=== PATIENT | male | born 1930 | race Caucasian/White ===

== ENCOUNTER 2020-02-10 17:13 | Inpatient (IN) | payer MEDICARE, MEDICAID ==
[~2020-02-10] VITALS: Ht 165.1 cm; Wt 77.1 kg
[2020-02-10] MEDS ORDERED: IV NS 0.9% 1,000 ML BAG IV ONE (17:30)
[2020-02-10] MEDS ORDERED: ONDANSETRON HCL/PF 4 MG/2 ML VIAL IVP ONE (17:30)
[2020-02-10] MEDS ORDERED: FAMOTIDINE/PF INJ 20 MG/2 ML VIAL IV ONE ×2 (17:30→17:36)
[2020-02-10] MEDS ORDERED: MORPHINE SULFATE INJ 2 MG/ML DISP.SYRIN IV ONE (17:30)
[2020-02-10] MEDS ORDERED: ONDANSETRON HCL/PF 4 MG/2 ML VIAL ONE (17:36)
[2020-02-10] MEDS ORDERED: MORPHINE SULFATE INJ 2 MG/ML DISP.SYRIN ONE (17:36)
[2020-02-10 17:42] LABS: APPEARANCE,URINE Clear (CLEAR); BILIRUBIN,URINE Negative (NEGATIVE); BLOOD, URINE Negative Ery/uL (NEGATIVE); COLOR,URINE Yellow (YELLOW); KETONES,URINE Negative (NEGATIVE); LEUKOCYTE ESTERASE ,URINE Negative (NEGATIVE); NITRITE, URINE Negative (NEGATIVE); PH,URINE 6.5 (5.0-8.0); PROTEIN,URINE 30 mg/dl (NEGATIVE); UGLUCOSE Negative (NEGATIVE)
[2020-02-10 17:47] LABS: BASOPHILS % (AUTO) 0.1 % (0.0-2.0); EOSINOPHILS % (AUTO) 0.1 % (0.0-6.0); HEMATOCRIT 41 % (39-51); HEMOGLOBIN 13.4 g/dL (13.5-17.5); LYMPHOCYTES # (AUTO) 1.1 /CMM (0.8-4.8); LYMPHOCYTES % (AUTO) 7.5 % (20.0-44.0); MEAN CORPUSCULAR HGB CONC 33 g/dl (31.0-36.0); MEAN CORPUSCULAR VOLUME 98 fL (80-96); MONOCYTES # (AUTO) 1.3 /CMM (0.1-1.30); MONOCYTES % (AUTO) 8.5 % (2.0-12.0); NEUTROPHILS # (AUTO) 12.8 /CMM (1.8-8.9); NEUTROPHILS % (AUTO) 83.8 % (43.0-81.0); PLATELET COUNT (AUTO) 162 /CMM (150-450); RED BLOOD CELL COUNT(AUTO) 4.15 MIL/uL (4.5-6.0); WHITE BLOOD COUNT (AUTO) 15.2 K/uL (4.3-11.0)
[2020-02-10 17:52] LABS: BACTERIA,URINE None seen /HPF (None Seen); RBC,URINE 0-2 /HPF (0-2); SQUAMOUS EPITHELIAL CELL,UR Few /HPF (None Seen); WBC,URINE 0-2 /HPF (0-3)
--- NOTE | 2020-02-10 17:55 | NUR ---
patient came in to the er c/o RUQ abdominal pain. On room air, breathing evenly and unlabored. connected to the monitor and pulse ox. kept comfortable, will continue to monitor accordingly.
[2020-02-10 17:56] LABS: CALCIUM, SERUM 8.6 mg/dL (8.5-10.1); CARBON DIOXIDE 27 mmol/L (21-32); CHLORIDE 100 mmol/L (98-107); CREATININE 1.1 mg/dL (0.6-1.3); GLUCOSE 153 mg/dL (74-106); POTASSIUM 4.1 mmol/L (3.5-5.1); SODIUM SERUM 134 mmol/L (136-145); UREA NITROGEN, BLOOD 18 mg/dL (7-18)
[2020-02-10 18:02] LABS: ALANINE AMINOTRANSFERASE 27 U/L (12-78); ALBUMIN 3.2 g/dL (3.4-5.0); ALKALINE PHOSPHATASE 67 U/L (46-116); ASPARTATE AMINOTRANSFERASE 27 U/L (15-37); BILIRUBIN,DIRECT 0.2 mg/dL (0.0-0.2); LIPASE 84 U/L (73-393); TOTAL PROTEIN, SERUM 7.2 g/dL (6.4-8.2)
--- NOTE | 2020-02-10 18:04 | NUR ---
patient came back from ct
--- NOTE | 2020-02-10 18:45 | NUR ---
CALLED DR. HOWE, NO ANSWER LEFT MESSAGE.
[2020-02-10] MEDS ORDERED: PIPERACILLIN /TAZOBACTAM 3.375 G in IV D5W 50 ML IV ONE (19:00)
--- NOTE | 2020-02-10 19:00 | NUR ---
SECOND ATTEMPT FOR DR. HOWE.
--- NOTE | 2020-02-10 19:13 | NUR ---
PAGED [facility].
--- NOTE | 2020-02-10 19:23 | NUR ---
DR. DEVINE SPEAKING WITH HOSPITALIST ROHITH LARA, SCHEDULER MAINTENANCE
--- NOTE | 2020-02-10 19:23 | NUR ---
PAGED DR. HOWE THIRD ATTEMPT.
--- NOTE | 2020-02-10 19:24 | NUR ---
COVID SWAB COLLECTED, CALLED LAB FOR STARTER CUP POWDER MIXER
--- NOTE | 2020-02-10 19:36 | NUR ---
PT IN BED AWAKE AND ALERT. ASKED PT ABOUT HIS HOME MEDS. PER HIM, HE IS TAKING A MEDICATION FOR HIS THYROID IN THE MORNING BUT HE DOES NOT RECALL THE NAME OR DOSE OF THE MED
--- NOTE | 2020-02-10 19:40 | NUR ---
BUTCH DUNBAR TALKING TO DR. HOWE REGARDING PT.
--- NOTE | 2020-02-10 20:03 | NUR ---
REC'D NEG COVID RESULTS FROM LAB. AWARE. CALLED NURSING SUP FOR BED
--- NOTE | 2020-02-10 20:04 | NUR ---
ROHITH LARA, PULMONARY DISEASE SPECIALIST AT BEDSIDE FOR EVALUATION
--- NOTE | 2020-02-10 20:05 | NUR ---
BED ASSIGNMENT 310-2
--- NOTE | 2020-02-10 20:13 | NUR ---
report give to Ivonne
--- NOTE | 2020-02-10 20:25 | NUR ---
dr Ari Franco at bed side
[2020-02-10] MEDS ORDERED: MAG HYDROX/AL HYDROX/SIMETH 30 ML UDC PO PRN (20:30)
[2020-02-10] MEDS ORDERED: ZOLPIDEM TARTRATE 5 MG TABLET PO PRN (20:30)
[2020-02-10] MEDS ORDERED: MORPHINE SULFATE INJ 2 MG/ML DISP.SYRIN IV PRN (20:30)
[2020-02-10] MEDS ORDERED: MAGNESIUM HYDROXIDE 30 ML UDC PO PRN (20:30)
[2020-02-10] MEDS ORDERED: Z GUARD REMEDY 2 OZ OINT TP PRN (20:30)
[2020-02-10] MEDS ORDERED: ACETAMINOPHEN 325 MG TABLET PO PRN (20:30)
[2020-02-10] MEDS ORDERED: ONDANSETRON HCL/PF 4 MG/2 ML VIAL IVP PRN (20:30)
--- NOTE | 2020-02-10 20:38 | NUR ---
MS ALBARRAN OPENING NOTES RECEIVED PATIENT FROM [facility] WITH STRETCHER, AWAKE, CONSCIOUS, COOPERATIVE, BREATHING AT ROOM AIR, NO SIGNS OF RESPIRATORY DISTRESS, LEFT HAND IV ACCESS #22G INTACT, ABLE TO AMBULATE BY HIMSELF, NO COMPLAINTS OF PAIN, SIDE RAILS UP. Addendum: 02/10/20 at 2358 by CLINT PA RN VITAL SIGNS UPON ARRIVAL AT THE UNIT. BP- 142/94, HR- 83, RR- 18, TEMP- 98, O2 SAT 95%.
--- NOTE | 2020-02-10 20:41 | NUR ---
PT TRANSFERED PER ACLS PROTOCOL
[2020-02-10] MEDS: IV NS 0.9% 1,000 ML IV PRN (21:09)
[2020-02-11] MEDS ORDERED: PIPERACILLIN /TAZOBACTAM 3.375 G in IV D5W 50 ML IV SCH ×2
[2020-02-11] MEDS ORDERED: PIPERACILLIN /TAZOBACTAM 3.375 G VIAL IV ONE (00:18)
[2020-02-11] MEDS: PIPERACILLIN /TAZOBACTAM 3.375 G in IV D5W 100 ML IV SCH ×3 (00:23→17:11)
--- NOTE | 2020-02-11 06:49 | NUR ---
MS RN CLOSING NOTES ENDORSED PATIENT IN BED, AWAKE, CONSCIOUS, COOPERATIVE, BREATHING AT ROOM AIR, NO SIGNS OF RESPIRATORY DISTRESS, LEFT HAND IV ACCESS #22G INTACT NS @ 90ML/HR INFUSING WELL, ABLE TO AMBULATE BY HIMSELF, NO COMPLAINTS OF PAIN, DUE MED GIVEN SIDE RAILS UP FOR SAFETY.
[2020-02-11 08:00] VITALS: BP 117/63
[2020-02-11] MEDS: PANTOPRAZOLE 40 MG VIAL IV SCH (08:11)
[2020-02-11 09:33] LABS: BASOPHILS % (AUTO) 0.2 % (0.0-2.0); EOSINOPHILS % (AUTO) 0.4 % (0.0-6.0); HEMATOCRIT 38 % (39-51); HEMOGLOBIN 12.7 g/dL (13.5-17.5); LYMPHOCYTES # (AUTO) 1.4 /CMM (0.8-4.8); LYMPHOCYTES % (AUTO) 11.5 % (20.0-44.0); MEAN CORPUSCULAR HGB CONC 33 g/dl (31.0-36.0); MEAN CORPUSCULAR VOLUME 97 fL (80-96); MONOCYTES # (AUTO) 0.9 /CMM (0.1-1.30); MONOCYTES % (AUTO) 7.8 % (2.0-12.0); NEUTROPHILS # (AUTO) 9.8 /CMM (1.8-8.9); NEUTROPHILS % (AUTO) 80.1 % (43.0-81.0); PLATELET COUNT (AUTO) 149 /CMM (150-450); RED BLOOD CELL COUNT(AUTO) 3.91 MIL/uL (4.5-6.0); WHITE BLOOD COUNT (AUTO) 12.2 K/uL (4.3-11.0)
[2020-02-11 09:43] LABS: ALBUMIN 2.7 g/dL (3.4-5.0); BILIRUBIN,DIRECT 0.3 mg/dL (0.0-0.2); CALCIUM, SERUM 8.1 mg/dL (8.5-10.1); CREATININE 0.9 mg/dL (0.6-1.3); MAGNESIUM 2.3 mg/dL (1.8-2.4); PHOSPHORUS 2.1 mg/dL (2.5-4.9); POTASSIUM 3.7 mmol/L (3.5-5.1); TOTAL PROTEIN, SERUM 6.4 g/dL (6.4-8.2)
[2020-02-11] MEDS ORDERED: LEVO75TA56 PO (09:45)
[2020-02-11] MEDS ORDERED: IOHEXOL-300 100 ML VIAL IV ONE (09:47)
[2020-02-11] MEDS ORDERED: CT SWABBABLE VALVE TRANS SET 1 EA INFUS.SET MC ONE (09:47)
[2020-02-11] MEDS ORDERED: IV NS 0.9% 250 ML IV ONE (09:47)
[2020-02-11] MEDS: ENOXAPARIN SODIUM 40 MG/0.4 ML DISP.SYRIN SQ SCH (12:32)
[2020-02-11] MEDS ORDERED: NEUTRA PHOS 1 POWD.PACKET PO ONE (14:00)
[2020-02-11 16:00] VITALS: BP 120/62
--- NOTE | 2020-02-11 18:27 | NUR ---
RN END OF SHIFT SUMMARY PT IS A/OX4, AFEBRILE. NON-MONITORED, VSS. TOLERATING RA. RESPIRATIONS ARE EVEN AND UNLABORED, NOT IN ANY ACUTE DISTRESS NOTED. DENIES ANY CHEST PAIN, SOB, N/V. ABDOMEN IS SOFT AND NONDISTENDED, BOWEL SOUNDS ARE PRESENT IN ALL 4 QUADRANTS UPON AUSCULTATION. DENIES ANY BLADDER DISCOMFORT. SKIN CDI. ALL NEEDS MET AND RENDERED. SAFETY MEASURES ARE IN PLACE. CALL LIGHT IS LEFT WITHIN REACH. WILL MONITOR AND CONTINUE POC.
[2020-02-11 20:00] VITALS: BP 114/69
--- NOTE | 2020-02-11 20:00 | NUR ---
MS RN OPENING NOTE: Received patient in bed sleeping but easily arousable. Shows no signs of pain or discomfort. Patient is in room air; breathing is unlabored and equal. No SOB or distress noted. Noted IV access on left hand 22g. Flushes well, patent, no redness, or infiltration. Safety precaution is in place; bed is in the lowest level, brakes are locked, side rails x2 are up, and call light is within reach. Will continue plan of care.
[2020-02-12] MEDS: PIPERACILLIN /TAZOBACTAM 3.375 G in IV D5W 100 ML IV SCH ×3 (00:39→17:33)
[2020-02-12] MEDS: IV NS 0.9% 1,000 ML IV PRN (00:55)
--- NOTE | 2020-02-12 06:30 | NUR ---
MS RN CLOSING NOTE: Patient in bed resting comfortably. Patient is in room air; breathing is unlabored and equal. No SOB or distress noted. Safety precaution is in place; bed is in the lowest level, brakes are locked, side rails x2 are up, and call light is within reach. Will endorse to next shift.
[2020-02-12 07:06] LABS: BASOPHILS % (AUTO) 0.1 % (0.0-2.0); EOSINOPHILS % (AUTO) 0.8 % (0.0-6.0); HEMATOCRIT 40 % (39-51); LYMPHOCYTES # (AUTO) 1.4 /CMM (0.8-4.8); LYMPHOCYTES % (AUTO) 11.4 % (20.0-44.0); MEAN CORPUSCULAR HGB CONC 32 g/dl (31.0-36.0); MEAN CORPUSCULAR VOLUME 99 fL (80-96); MONOCYTES # (AUTO) 1.1 /CMM (0.1-1.30); MONOCYTES % (AUTO) 8.4 % (2.0-12.0); NEUTROPHILS # (AUTO) 9.9 /CMM (1.8-8.9); NEUTROPHILS % (AUTO) 79.3 % (43.0-81.0); PLATELET COUNT (AUTO) 169 /CMM (150-450); RED BLOOD CELL COUNT(AUTO) 4.07 MIL/uL (4.5-6.0); WHITE BLOOD COUNT (AUTO) 12.5 K/uL (4.3-11.0)
[2020-02-12 07:16] LABS: CALCIUM, SERUM 8.1 mg/dL (8.5-10.1); CREATININE 0.9 mg/dL (0.6-1.3); PHOSPHORUS 2.6 mg/dL (2.5-4.9); POTASSIUM 3.7 mmol/L (3.5-5.1)
--- NOTE | 2020-02-12 07:30 | NUR ---
MS/RN OPENING NOTES Patient resting in bed, A&O x 4. No complaints of pain/discomfort noted at this time. Breathing even and non-labored on room air, no SOB noted. No cardiac distress noted. IV access noted on L hand #22, patent and intact, running NS @ 90mls/hr. Patient is ambulatory, instructed to use call light when in need of assistance getting up. Sensation from all peripheral extremities intact. Fall precautions maintained. Will continue to monitor patient for any changes of condition.
[2020-02-12] MEDS: HYDROCODONE/APAP 5/325MG 1 EACH TABLET PO PRN ×2 (07:53→17:34)
--- NOTE | 2020-02-12 07:53 | NUR ---
MS RN NOTE: Patient complains of abdominal pain. Patient rates his pain 7 on a 0-10 scale and describes it as aching. Administered PRN [place] per order. Will endorse to morning nurse.
[2020-02-12] MEDS: PANTOPRAZOLE 40 MG VIAL IV SCH (08:09)
[2020-02-12] MEDS: ENOXAPARIN SODIUM 40 MG/0.4 ML DISP.SYRIN SQ SCH ×2 (12:11→12:19)
--- NOTE | 2020-02-12 12:19 | NUR ---
MS/RN NOTE HELD LOVENOX, POSSIBLE SURGERY SOON, PER DR THOMPSON.
--- NOTE | 2020-02-12 19:00 | NUR ---
MS/RN CLOSING NOTES Patient resting in bed, A&O x 4. No complaints of pain/discomfort noted at this time, gave norco last 1734. Breathing even and non-labored on room air. No respiratory or cardiac distress noted. IV access noted on L hand #22, patent and intact, running NS @ 90mls/hr. No s/s of infiltration, bleeding, infection noted on site. Instructed to use call light when in need of assistance getting up. Sensation from all peripheral extremities intact. Fall precautions maintained. Obtained procedure, anesthesia, and blood transfusion consent, which are placed on the chart. NPO after midnight, will endorse to maintenance supervisor 2nd shift nurse.
--- NOTE | 2020-02-12 19:30 | NUR ---
MS RN NOTES RECEIVED ON BED A/O X4,SPEAK SENEGALESE,BREATHING REGULAR,NOT IN ANY FORM OF DISTRESS,ABDOMINAL PAIN TOLERABLE AT THE MOMENT,WAS JUST MEDICATED WITH NORCO 5/325MG AROUND 1800.INSTRUCTED NPO POST MIDNIGHT EXCEPT MEDS FOR LAPAROSCOPIC CHOLECYSTECTOMY TOMORROW BY NICOLE AVERY.CALL LIGHT IN REACH,NEEDS ANTICIPATED.
[2020-02-12 20:00] VITALS: BP 118/58
[2020-02-12 20:16] VITALS: BP 118/58
--- NOTE | 2020-02-13 | NUR ---
MS RN NOTES NPO EXCEPT MEDS POST MIDNIGHT FOR LAPAROSCOPIC CHOLECYSTECTOMY WITH DR HOWE
[2020-02-13] MEDS: PIPERACILLIN /TAZOBACTAM 3.375 G in IV D5W 100 ML IV SCH ×3 (00:15→18:35)
--- NOTE | 2020-02-13 06:41 | NUR ---
PARALEGAL SUPERVISOR NOTES ON BED A/O X4,SLEPT WELL,ABDOMINAL PAIN TOLERABLE.NPO EXCEPT MEDS FOR PROCEDURE AT 1200 NOON.IN NO ACUTE DISTRESS.WILL ENDORSE TO DAY NURSE FOR ARISTEO.
[2020-02-13 07:32] LABS: CALCIUM, SERUM 7.2 mg/dL (8.5-10.1); CREATININE 0.9 mg/dL (0.6-1.3); POTASSIUM 3.2 mmol/L (3.5-5.1)
--- NOTE | 2020-02-13 07:42 | NUR ---
MS RN NOTES PATIENT IN BED RESTING NO SOB OR ACUTE DISTRESS NOTED. PATIENT WAITING FOR SURGERY. NPO EXCEPT MEDS. BED IN LOW LOCKED POSITION. WILL CONTINUE TO MONITOR.
[2020-02-13 08:00] VITALS: BP 115/59
[2020-02-13] MEDS: PANTOPRAZOLE 40 MG VIAL IV SCH (08:06)
[2020-02-13] MEDS: POTASSIUM CL. PREMIX PERIPHER. 50 ML IV SCH ×2 (08:06→16:54)
[2020-02-13] MEDS: IV NS 0.9% 1,000 ML IV PRN ×2 (08:13→22:27)
[2020-02-13 08:17] LABS: BASOPHILS % (AUTO) 0.2 % (0.0-2.0); EOSINOPHILS % (AUTO) 2.9 % (0.0-6.0); HEMATOCRIT 36 % (39-51); HEMOGLOBIN 12.2 g/dL (13.5-17.5); LYMPHOCYTES # (AUTO) 1.1 /CMM (0.8-4.8); LYMPHOCYTES % (AUTO) 13.8 % (20.0-44.0); MEAN CORPUSCULAR HGB CONC 34 g/dl (31.0-36.0); MEAN CORPUSCULAR VOLUME 98 fL (80-96); MONOCYTES # (AUTO) 0.8 /CMM (0.1-1.30); MONOCYTES % (AUTO) 9.8 % (2.0-12.0); NEUTROPHILS # (AUTO) 5.7 /CMM (1.8-8.9); NEUTROPHILS % (AUTO) 73.3 % (43.0-81.0); PLATELET COUNT (AUTO) 179 /CMM (150-450); RED BLOOD CELL COUNT(AUTO) 3.71 MIL/uL (4.5-6.0); WHITE BLOOD COUNT (AUTO) 7.8 K/uL (4.3-11.0)
[2020-02-13] MEDS ORDERED: TETRACAINE/BENZOCAINE/BUTAMBEN 56 GM SPRAY TP ONE (10:06)
[2020-02-13 16:05] VITALS: BP 113/66
--- NOTE | 2020-02-13 18:36 | NUR ---
MS RN NOTES PATIENT IN BED RESTING NO SOB OR ACUTE DISTRESS NOTED. PATIENT ALERT, ORIENTED X 3. ALL DUE MEDICATIONS ADMINISTERED. ALL NEEDS MET. NO ACUTE CHANGES NOTED DURING SHIFT. WILL ENDORSE CARE TO PM SHIFT.
[2020-02-13 20:00] VITALS: BP 107/55
--- NOTE | 2020-02-13 20:10 | NUR ---
airborne operations: received report from ozzy hassan at 1915. met with pt in the room. pt is a/o x3 on ra respirations evena nd unlabored, denies any pain at this time, pt stated his only concern is to have something to eat tonight as he's been npo throughout the day. scheduled surgery today but got cancelled. per report, no plans of surgery for tomorrow, it will be outpatient surgery. iv access patent and flushing well, infusing with ns at 90ml/hr. urinal within reach. scd applied. discussed plan of care to pt, pt agree and understand. safety precautions for fall initiated, call light in reach, will continue to monitor.
--- NOTE | 2020-02-13 20:30 | NUR ---
rn notes: urinal emptied twice. urinal within reach. pt provided with jello juice and egg sandwich.
--- NOTE | 2020-02-13 21:30 | NUR ---
rn notes: pt sleeping, snoring, appears comfortable,respiration even and unlabored.
--- NOTE | 2020-02-13 22:28 | NUR ---
prn tylenol: pt requested tylenol for low grade temp 99.3. prn tylenol 650 mg tab po administered to pt at this time.
--- NOTE | 2020-02-13 22:39 | NUR ---
rn notes: went to check on pt, pt been complaining that he's disappointed because there is no night light, informed pt rn can turn the light on it just so happened that the overhead light string was really short. showed to pt, unfortunately the bottom part for light isnt working. pt refused to keep lights on. also he complained that the sandwhich is cold, informed it was taken from the fridge and that kitchen is closed for the night so we could only provide snacks for pt such as sandwich, jello juice pudding, milk and crackers. offered to warm pt's sandwich. pt refused. broomcorn scraper notified of pt's complaint.
--- NOTE | 2020-02-14 00:30 | NUR ---
RN NOTES: SEEN PT ASLEEP, APPEARS CALM AND COMFORTABLE, URINAL AND CALL LIGHT WITHIN REACH.
[2020-02-14] MEDS: PIPERACILLIN /TAZOBACTAM 3.375 G in IV D5W 100 ML IV SCH ×3 (00:56→16:44)
--- NOTE | 2020-02-14 01:30 | NUR ---
rn notes: per rd recommendation, the [facility] diet consistency soft. informed hospitalist joni rincon director translational as pt able to tolerate po intake full liquid diet last night, and made aware of asbestos brake lining finisher recommendation. per okay to be on the [facility] soft diet for breakfast.
--- NOTE | 2020-02-14 02:00 | NUR ---
RN NOTES: PT SLEEPING, APPEARS CALM AND COMFORTABLE, CALL LIGHT AND URINAL WITHIN REACH.
--- NOTE | 2020-02-14 06:52 | NUR ---
end of shift report: pt remains a/o x4, able to sleep for approximately 6hrs. on ra, denies any pain or discomfort throughout the shift. tolerated po intake well. iv access remains patent and flushing well, infusing with ns at 90ml/hr. no s/s of iv infiltration noted. urinal within reach. PLAN OF CARE: INPT vs OUTPT cholecystectomy. Cont IV ATB. vs remains stable, needs attended. safety precautions for fall remains engaged, call light in reach, will endorse to day rn for continuity of care.
--- NOTE | 2020-02-14 07:30 | NUR ---
RN OPENING NOTES RECEIVED PT IN BED. AWAKE ALERT AND ORIENTED X4. NO CARDIAC OR RESPIRATORY DISTRESS NOTED. NO SOB NOTED. SATURATING WELL ON ROOM AIR. BREATHING EVEN AND UNLABORED. PER REPORT FROM GRAIN INSPECTOR NURSE PTS CHOLECYSTECTOMY PROCEDURE WAS CANCELLED YESTERDAY. WILL F/U WITH MD REGARDING PLAN FOR RE-SCHEDULING. IV ACCESS NOTED ON L HAND G22. INTACT AND PATENT AND FLUSHING WELL. WITH NS RUNNING ATR 90ML/HR. TOLERATING IV FLUIDS WELL. SAFETY PRECAUTIONS IN PLACE. BED LOCKED AND IN LOW POSITION. SIDE RAILS UP X2. BED ALARM ON. CALL LIGHT WITHIN REACH. WILL CONT TO MONITOR.
[2020-02-14 08:00] VITALS: BP 109/67
[2020-02-14] MEDS: LEVOTHYROXINE SODIUM 75 MCG TABLET PO SCH (08:19)
[2020-02-14 08:29] LABS: BASOPHILS % (AUTO) 0.2 % (0.0-2.0); EOSINOPHILS % (AUTO) 2.4 % (0.0-6.0); HEMATOCRIT 40 % (39-51); HEMOGLOBIN 13.1 g/dL (13.5-17.5); LYMPHOCYTES # (AUTO) 1.1 /CMM (0.8-4.8); LYMPHOCYTES % (AUTO) 9.5 % (20.0-44.0); MEAN CORPUSCULAR HGB CONC 33 g/dl (31.0-36.0); MEAN CORPUSCULAR VOLUME 98 fL (80-96); MONOCYTES # (AUTO) 1.3 /CMM (0.1-1.30); MONOCYTES % (AUTO) 11.2 % (2.0-12.0); NEUTROPHILS # (AUTO) 8.6 /CMM (1.8-8.9); NEUTROPHILS % (AUTO) 76.7 % (43.0-81.0); PLATELET COUNT (AUTO) 199 /CMM (150-450); RED BLOOD CELL COUNT(AUTO) 4.05 MIL/uL (4.5-6.0); WHITE BLOOD COUNT (AUTO) 11.2 K/uL (4.3-11.0)
[2020-02-14 08:38] LABS: CALCIUM, SERUM 7.9 mg/dL (8.5-10.1); CREATININE 0.9 mg/dL (0.6-1.3); POTASSIUM 3.9 mmol/L (3.5-5.1)
[2020-02-14] MEDS: PANTOPRAZOLE 40 MG TABLET.DR PO SCH (08:53)
[2020-02-14] MEDS: POTASSIUM CHLORIDE 20 MEQ TAB.PRT.SR PO SCH ×3 (09:02→11:45)
--- NOTE | 2020-02-14 11:00 | NUR ---
K REPLACEMENT K+ REPLACEMENT DONE TODAY. PTY WAS GIVEN 60MEQ TOTAL OF POTASSIUM.
[2020-02-14] MEDS: HYDROCODONE/APAP 5/325MG 1 EACH TABLET PO PRN (12:38)
--- NOTE | 2020-02-14 17:00 | NUR ---
SURGERY CONSULT PT WAS SEEN BY KARTHIK ROLLER HAND, PER KARTHIK MOST LIKELY SURGERY FOR CHOLECYSTECTOMY WILL BE ON SUNDAY. PT IS AWARE. KARTHIK SPOKE TO PT REGARDING PLAN OF CARE
--- NOTE | 2020-02-14 18:15 | NUR ---
RN CLOSING NOTES PT IN BED. AWAKE ALERT AND ORIENTED X4. NO CARDIAC OR RESPIRATORY DISTRESS NOTED. NO SOB NOTED. SATURATING WELL ON ROOM AIR. BREATHING EVEN AND UNLABORED. PER REPORT FROM VICE PRESIDENT TAX NURSE PTS CHOLECYSTECTOMY PROCEDURE WAS CANCELLED YESTERDAY. WILL F/U WITH MD REGARDING PLAN FOR RE-SCHEDULING. IV ACCESS NOTED ON L HAND G22 AND R AC G18. INTACT AND PATENT AND FLUSHING WELL. IV FLUIDS DISCONTINUED TODAY BY MD. PT MADE AWARE REGARDING RE-SCHEDULED CHOLECYSTECTOMY FOR SUNDAY. SAFETY PRECAUTIONS IN PLACE. BED LOCKED AND IN LOW POSITION. SIDE RAILS UP X2. BED ALARM ON. CALL LIGHT WITHIN REACH. WILL CONT TO MONITOR.
[2020-02-14 20:00] VITALS: BP 98/56
--- NOTE | 2020-02-14 20:00 | NUR ---
MS/RN OPENING NOTES RECEIVED PATIENT IN BED, RESTING COMFORTABLY IN BED, IN ROOM AIR, RESPIRATIONS EVEN AND UNLABORED, SKIN WARM TO TOUCH, ALERT, ORIENTED X 4 ABLE TO VERBALZIE NEEDSM USES URINAL BUT CAN WALK WITH ASSIST, ON CCHO 60 GRAM DIET, PATIENT VERBALIZE NEEDS AND WAS CANCELLED TO RECEIVE PROCEDURE THIS AM AND WAS MD NOTIFIED PATIENT AND DISCUSSED PLANS EITHER TO DO IT OUT PATIENT OR TO LET HIM STAY IN HOSPITAL AND TO HAVE PROCEDURE ON SUNDAY INSTEAD, RUDY MILTON INVOLVED AND WOULD LIKE TO BE CONTACTED FOR ANY CHANGES AND CONCERNS, WILL MONITOR. BED LOCKED, CALL LIGHTS WITHIN REACH. WILL MONITOR.
[2020-02-15] MEDS: PIPERACILLIN /TAZOBACTAM 3.375 G in IV D5W 100 ML IV SCH ×3 (00:01→16:46)
[2020-02-15 00:15] VITALS: BP 118/62
[2020-02-15] MEDS: HYDROCODONE/APAP 5/325MG 1 EACH TABLET PO PRN ×3 (00:21→23:26)
--- NOTE | 2020-02-15 00:24 | NUR ---
MS/RN NOTES PATIENT REPORTED RIGHT ABDOMINAL PAIN OF MODERATE PAIN REQUESTED FOR ORAL PAIN MEDICATION NORCO 5-325 MG PO PRESCRIBED AND REPORTED NO BOWEL MOVEMENT FRO THE PAST 3 DAYS, NEEDED MOM PRESCRIBED TO BE GIVEN, BLOOD PRESSURE SBP OVER 115, PATIENT ABLE TO TOLERATE FLUIDS AND TO MONITOR RELIEF OF PAIN.
--- NOTE | 2020-02-15 06:27 | NUR ---
310-2 MS/RN NOTES PATIENT ALERT X4, ABLE OT VERBALZIE NEEDS AND CONCERNS, ATTENDED TO ALL NEEDS, KEPT COMFORTABLE, PAIN MANAGED, MONITORED FOR BOWEL RELIEF, IV ANTIBIOTC ADMINISTERED. BED LOCKED, CALL LIGHTS WITHIN REACHED, OFFERED AND PROVIDED SNACKS AND FLUIDS. BED LOCKED, CALL LIGHTS WITHIN REACH. WILL MONITOR.
[2020-02-15 06:39] LABS: BASOPHILS % (AUTO) 0.4 % (0.0-2.0); EOSINOPHILS % (AUTO) 3.8 % (0.0-6.0); HEMATOCRIT 38 % (39-51); HEMOGLOBIN 12.6 g/dL (13.5-17.5); LYMPHOCYTES # (AUTO) 1.6 /CMM (0.8-4.8); LYMPHOCYTES % (AUTO) 16.9 % (20.0-44.0); MEAN CORPUSCULAR HGB CONC 33 g/dl (31.0-36.0); MEAN CORPUSCULAR VOLUME 98 fL (80-96); MONOCYTES # (AUTO) 0.9 /CMM (0.1-1.30); MONOCYTES % (AUTO) 10.1 % (2.0-12.0); NEUTROPHILS # (AUTO) 6.4 /CMM (1.8-8.9); NEUTROPHILS % (AUTO) 68.8 % (43.0-81.0); PLATELET COUNT (AUTO) 238 /CMM (150-450); RED BLOOD CELL COUNT(AUTO) 3.88 MIL/uL (4.5-6.0); WHITE BLOOD COUNT (AUTO) 9.3 K/uL (4.3-11.0)
[2020-02-15 06:52] LABS: CALCIUM, SERUM 8.4 mg/dL (8.5-10.1); POTASSIUM 4.1 mmol/L (3.5-5.1)
--- NOTE | 2020-02-15 07:53 | NUR ---
MS/RN OPENING NOTE RECEIVED PATIENT IN BED, RESTING COMFORTABLY IN BED, IN ROOM AIR, RESPIRATIONS EVEN AND UNLABORED, SKIN WARM TO TOUCH, ALERT, ORIENTED X 4 ABLE TO VERBALIZE NEEDS USES URINAL BUT CAN WALK WITH ASSIST, ON CCHO 60 GRAM DIET, PATIENT VERBALIZE HAVING A PENDING PROCEDURE MD NOTIFIED PATIENT AND DISCUSSED PLANS EITHER TO DO IT OUT PATIENT OR TO LET HIM STAY IN HOSPITAL AND TO HAVE PROCEDURE ON SUNDAY INSTEAD, RUDY MILTON AWARE AND WOULD LIKE TO BE CONTACTED FOR ANY CHANGES AND CONCERNS, WILL MONITOR. SAFETY MEASURES IN PLACE BED LOCKED, LOWEST POSITION CALL LIGHTS WITHIN REACH. WILL MONITOR.
[2020-02-15 08:00] VITALS: BP 119/70
[2020-02-15] MEDS: PANTOPRAZOLE 40 MG TABLET.DR PO SCH (09:16)
[2020-02-15] MEDS: LEVOTHYROXINE SODIUM 75 MCG TABLET PO SCH (09:16)
--- NOTE | 2020-02-15 14:42 | NUR ---
MS/RN NOTES PATIENT REPORTED ABDOMINAL PAIN OF 6/10 MODERATE PAIN REQUESTED FOR ORAL PAIN MEDICATION NORCO 5-325 MG PO GIVEN PRESCRIBED. PT HAD A BOWEL MOVEMENT TODAY, WILL CONTINUE TO MONITOR.
[2020-02-15 16:00] VITALS: BP 106/60
--- NOTE | 2020-02-15 18:28 | NUR ---
RN CLOSING NOTES PT IN BED. AWAKE ALERT AND ORIENTED X4. NO RESPIRATORY DISTRESS NOTED. NO SOB NOTED. SATURATING WELL ON ROOM AIR @95%. BREATHING EVEN AND UNLABORED. PER Dr NOTES PTS CHOLECYSTECTOMY PROCEDURE POSSIBLE TOMORROW. WILL F/U WITH MD REGARDING SCHEDULING. IV ACCESS NOTED ON L HAND G22 . INTACT AND PATENT AND FLUSHING WELL MEDICATED x 1 FOR PAIN. PT MADE AWARE OF RE-SCHEDULED CHOLECYSTECTOMY FOR SUNDAY. SAFETY PRECAUTIONS IN PLACE. BED LOCKED AND IN LOW POSITION. SIDE RAILS UP X2. BED ALARM ON. CALL LIGHT WITHIN REACH. WILL CONT TO MONITOR.
[2020-02-15 20:00] VITALS: BP 101/60
--- NOTE | 2020-02-15 20:00 | NUR ---
MS/RN OPENING NOTES OBSERVE PATIENT ABLE TO REST AND HAVE GOOD SLEEP, AWAKE, ALERT X3,ABLE TO VERBALIZE NEEDS, CAN URINATE WITH URINAL, AND BELONGINGS WITHIN REACH, REQUESTED FOR SOME LIGHTS BE TURNED ON. IV SITE ON LEFT HAND GAUGE 22. PROVIDED SNACKS EARLIER, BED LOCKED,CALL LIGHTS WITHIN REACH WILL MONITOR.
[2020-02-15 20:29] VITALS: BP 101/60
--- NOTE | 2020-02-15 23:29 | NUR ---
MS/RN NOTES NORCO 5-325 MG PO REQUESTED FOR PAIN IN ABDOMEN WITH GRIMACE AND GUARDING, TOLERATED WELL WITH FLUIDS AND SOME SNACKS. MONITORED FOR PAIN RELIEF. CONSENT AND PLAN OF SURGERY FOR AM TO WITH INSTRUCTIONS FROM SURGERY TO KEEP PATIENT NPO MIDNIGHT EXCEPT MEDS.
[2020-02-16] MEDS: PIPERACILLIN /TAZOBACTAM 3.375 G in IV D5W 100 ML IV SCH ×3 (00:11→17:33)
--- NOTE | 2020-02-16 06:30 | NUR ---
310-2 MS/RN NOTES PATIENT IN BED, SLEPT DURING THE NIGHT AFTER HAVING SOME SNACKS AND FLUIDS. ON NPO STATUS FOR PROCEDURE. ALERT, ORIENTED X3, ABLE TO VERBALIZE NEEDS, SKIN WARM TO TOUCH, RESPIRATIONS EVEN AND UNLABORED, KEPT COMFORTABLE, IV SITE TO BE REINSERTED, REFUSE TO HAVE IT DONE EARLY WHILE ASLEEP. MONITORED, BED LOCKED, CALL LIGTHS WITHIN REACH. WILL ENDORSE TO AM RN FOR ARISTEO. PAIN MANAGED AND RELIEVED.
[2020-02-16 06:39] LABS: BASOPHILS % (AUTO) 0.3 % (0.0-2.0); EOSINOPHILS % (AUTO) 4.3 % (0.0-6.0); HEMATOCRIT 37 % (39-51); HEMOGLOBIN 12.3 g/dL (13.5-17.5); LYMPHOCYTES # (AUTO) 1.2 /CMM (0.8-4.8); LYMPHOCYTES % (AUTO) 15.2 % (20.0-44.0); MEAN CORPUSCULAR HGB CONC 33 g/dl (31.0-36.0); MEAN CORPUSCULAR VOLUME 98 fL (80-96); MONOCYTES # (AUTO) 0.9 /CMM (0.1-1.30); MONOCYTES % (AUTO) 10.7 % (2.0-12.0); NEUTROPHILS # (AUTO) 5.7 /CMM (1.8-8.9); NEUTROPHILS % (AUTO) 69.5 % (43.0-81.0); PLATELET COUNT (AUTO) 266 /CMM (150-450); RED BLOOD CELL COUNT(AUTO) 3.82 MIL/uL (4.5-6.0); WHITE BLOOD COUNT (AUTO) 8.2 K/uL (4.3-11.0)
[2020-02-16 06:52] LABS: CALCIUM, SERUM 8.1 mg/dL (8.5-10.1); POTASSIUM 3.9 mmol/L (3.5-5.1)
--- NOTE | 2020-02-16 07:30 | NUR ---
MS/RN OPENING NOTES Patient resting in bed, A&O x 4. No complaints of pain/discomfort noted at this time. Breathing even and non-labored on room air, no SOB noted. No cardiac distress noted. IV access noted on L AC #22, patent and intact, and flushing well. Patient is ambulatory, instructed to use call light when in need of assistance getting up. Sensation from all peripheral extremities intact. Kept NPO except meds for scheduled surgery today at 3pm. Fall precautions maintained. Will continue to monitor patient for any changes of condition.
[2020-02-16 08:04] VITALS: BP 113/66
[2020-02-16] MEDS: PANTOPRAZOLE 40 MG TABLET.DR PO SCH (08:28)
[2020-02-16] MEDS: LEVOTHYROXINE SODIUM 75 MCG TABLET PO SCH (08:28)
[2020-02-16] MEDS ORDERED: LIDOCAINE HCL/MPF 1% 30 ML VIAL IJ ONE (14:50)
[2020-02-16] MEDS ORDERED: BUPIVACAINE MPF 0.5% W/EPI INJ 30 ML VIAL ONE (14:51)
--- NOTE | 2020-02-16 16:30 | NUR ---
MS/RN NOTES CALLED SURGERY TO FOR FOLLOW UP TO END LATHE OPERATOR PATIENT, STATES "DR. HOWE IS NOT HERE YET."
[2020-02-16 16:32] VITALS: BP 118/64
--- NOTE | 2020-02-16 17:30 | NUR ---
MS/RN NOTES Patient left for surgery, with zosyn running @25mls/hr - ok'd by Dr. Franco.
--- NOTE | 2020-02-16 19:14 | NUR ---
MS/RN CLOSING NOTES PATIENT STILL AT SURGERY. WILL ENDORSE TO GARBAGE TRUCK DISPATCHER NURSE.
--- NOTE | 2020-02-16 19:26 | NUR ---
MS/RN NOTES RECEIVED CALL FROM OR, CANCELLED SURGERY PER DR. HOWE DUE TO MEDIASTINUM MASS. PER DR. HOWE AND DR. VALDEZ, NOT SAFE TO CONTINUE SURGERY. OR NURSE STATES "ALL ORDERS WILL BE ON THE PROGRESS NOTES FROM DR. HOWE AND DR VALDEZ." WILL ENDORSE TO ASSOCIATE PROFESSOR OF SOCIOLOGY NURSE.
--- NOTE | 2020-02-16 19:30 | NUR ---
MS RN OPENING NOTES PATIENT ARRIVED BACK TO UNIT APPROX 1922 ACCOMPANIED BY OR STAFF; PER DR. HOWE AND DR. VALDEZ, NOT SAFE TO PERFORM PROCEDURE D/T MEDIASTINUM MASS; PATIENT AWARE OF CANCELLATION; PATIENT A/OX4; BREATHING EVEN AND UNLABORED; TOLERATING ROOM AIR WELL; NO SOB NOTED; NPO STATUS EXCEPT MEDS WILL BE MAINTAINED FOR NOW; PATIENT WOULD LIKE TO EAT, WILL SPEAK TO DR REGARDING DIET ORDERS; L AC #22 INTACT AND PATENT; PATIENT ABLE TO MAKE NEEDS KNOWN; SAFETY PRECAUTIONS IMPLEMENTED; BED LOCKED IN LOW POSITION; SIDE RAILSX2; CALL LIGHT WITHIN REACH; WILL CONT TO MONITOR
[2020-02-16 20:00] VITALS: BP 119/69
--- NOTE | 2020-02-16 20:29 | NUR ---
MS RN NOTES PATIENT STATED HE IS HUNGRY; SPOKE WITH DR. HOWE, PER MD START WITH CLEAR LIQUID DIET AND ADVANCED TO LOW FAT TOLERATED; WILL CONT TO MONITOR
[2020-02-17] MEDS: PIPERACILLIN /TAZOBACTAM 3.375 G in IV D5W 100 ML IV SCH ×3 (00:01→17:09)
--- NOTE | 2020-02-17 06:31 | NUR ---
MS RN CLOSING NOTES PATIENT RESTING IN BED COMFORTABLY; A/OX4; BREATHING EVEN AND UNLABORED; TOLERATING ROOM AIR WELL; NO SOB NOTED; PATIENT ABLE TO MAKE NEEDS KNOWN; L AC #22 SL, INTACT AND PATENT; FLUSHING WELL; NO S/S OF REDNESS OR INFILTRATION NOTED; ALL NEEDS RENDERED; SAFETY PRECAUTIONS IMPLEMENTED; BED LOCKED IN LOW POSITION; SIDE RAILSX2; CALL LIGHT WITHIN REACH; WILL ENDORSE ARISTEO TO ONCOMING SHIFT
[2020-02-17 07:05] LABS: BASOPHILS % (AUTO) 0.3 % (0.0-2.0); EOSINOPHILS % (AUTO) 3.5 % (0.0-6.0); HEMATOCRIT 42 % (39-51); LYMPHOCYTES # (AUTO) 1.7 /CMM (0.8-4.8); MEAN CORPUSCULAR HGB CONC 33 g/dl (31.0-36.0); MEAN CORPUSCULAR VOLUME 97 fL (80-96); MONOCYTES # (AUTO) 0.7 /CMM (0.1-1.30); MONOCYTES % (AUTO) 9.7 % (2.0-12.0); NEUTROPHILS # (AUTO) 4.8 /CMM (1.8-8.9); NEUTROPHILS % (AUTO) 63.5 % (43.0-81.0); PLATELET COUNT (AUTO) 346 /CMM (150-450); RED BLOOD CELL COUNT(AUTO) 4.36 MIL/uL (4.5-6.0); WHITE BLOOD COUNT (AUTO) 7.5 K/uL (4.3-11.0)
[2020-02-17 07:26] LABS: CALCIUM, SERUM 7.6 mg/dL (8.5-10.1); CREATININE 1.1 mg/dL (0.6-1.3); MAGNESIUM 2.4 mg/dL (1.8-2.4); PHOSPHORUS 3.4 mg/dL (2.5-4.9)
--- NOTE | 2020-02-17 07:48 | NUR ---
MS/RN Opening note Patient received from shift stacker. A/O X4, vital signs within normal range, denies any pain or discomfort at this time. Heplock to left AC flushing well with saline, no signs of infiltration seen. All question and concerns addressed, for possible discharge to home later today. Will continue to monitor and ensure safety.
[2020-02-17 08:00] VITALS: BP_SYST 139; BP_DIAS 84; BP_DIAS 94
[2020-02-17] MEDS: LEVOTHYROXINE SODIUM 75 MCG TABLET PO SCH (08:24)
[2020-02-17] MEDS: PANTOPRAZOLE 40 MG TABLET.DR PO SCH (08:24)
[2020-02-17] MEDS ORDERED: METR500T PO (08:41)
[2020-02-17] MEDS ORDERED: CIPR-262 PO (08:41)
--- NOTE | 2020-02-17 10:00 | NUR ---
MS/RN S/B Dr Rudd Seen by Dr Rudd - for probable discharge today. Will call trenton Camilo and coordinate follow up care that patient will need if surgery to remove gallbladder is to take place at future time. -Ton
[2020-02-17] MEDS: HYDROCODONE/APAP 5/325MG 1 EACH TABLET PO PRN (13:12)
--- NOTE | 2020-02-17 13:15 | NUR ---
MS/RN Pain Patient complaining of upper abdominal pain 12/23. [place], one tablet administered, will monitor and assess effectiveness.
[2020-02-17 16:00] VITALS: BP 150/76
[2020-02-17 16:27] VITALS: BP 150/76
--- NOTE | 2020-02-17 17:00 | NUR ---
MS/RN S/B Dr Rudd Seen by Dr Rudd - patient to be discharged to home this evening. Ton updated as to plan of care and the need for follow up. Provided with names and numbers. Exit care prepared and includes diet plans for gallbladder patients.
--- NOTE | 2020-02-17 18:36 | NUR ---
MS/RN End note Patient remains in stable condition, for discharge this evening. All paperwork completed, chart copied, heplock removed. Will endorse to maintenance mechanic 2nd shift.
--- NOTE | 2020-02-17 20:36 | NUR ---
MS RN NOTES PATIENT DISCHARGED VIA WHEELCHAIR, ACCOMPANIED BY OBGYN SPECIALIST; FAMILY WAITING FOR AGRICULTURE ENGINEER; PER AM SHIFT, IV REMOVED; WRIST BAND REMOVED; DISCHARGE PAPERWORK COMPLETED; OBGYN SPECIALIST CALLED UNIT REGARDING PATIENT AND FAMILY'S CONCERNS REGARDING DISCHARGE PAPERWORK; PATIENT WOULD LIKE WRITTEN ORDERS FOR PRESCRIPTIONS; CHARGE NURSE AND NURSING HAND TUBE BENDER AWARE; SPOKE WITH MD, PER MD OKAY TO WRITE PRESCRIPTIONS AGAIN FOR PATIENT; GOT BACK TO UNIT, PATIENT AND FAMILY LEFT; PER OBGYN SPECIALIST THEY FOUND ALL THE DOCUMENTS NEEDED; PATIENT DISCHARGED; NURSING HAND TUBE BENDER AWARE;
== END 2020-02-17 20:15 | disposition home or self-care (01) | DRG 444 ==
LOC: ER 17:17 → MED 20:10
PROVIDERS: ADMIT Nurse Practitioner Acute Care; ATTEND Nurse Practitioner Acute Care
DX: K80.00 Calculus of gallbladder with acute cholecystitis without obstruction (principal); K65.9 Peritonitis, unspecified; J98.59 Other diseases of mediastinum, not elsewhere classified; J98.11 Atelectasis; K82.8 Other specified diseases of gallbladder; K76.0 Fatty (change of) liver, not elsewhere classified; Z85.819 Personal history of malignant neoplasm of unspecified site of lip, oral cavity, and pharynx; D72.829 Elevated white blood cell count, unspecified; E11.40 Type 2 diabetes mellitus with diabetic neuropathy, unspecified; Z92.3 Personal history of irradiation; Z92.21 Personal history of antineoplastic chemotherapy; Z85.21 Personal history of malignant neoplasm of larynx; Z83.3 Family history of diabetes mellitus; Z98.890 Other specified postprocedural states; E88.09 Other disorders of plasma-protein metabolism, not elsewhere classified; N32.0 Bladder-neck obstruction
CPT/HCPCS: 36415; 71045-TC; 71270-TC; 76705-TC; 80048-TC; 80053-TC; 80061-TC; 80076-TC; 81000-TC; 83690-TC; 83735-TC; 84100-TC; 84484-TC; 85025-TC; 85610-TC; 86850-TC; 87081-TC; 93307-TC; 97116-TC; 97530-TC; C9113; G0378; J1650; J2270; J2405; J2543; J3480; J3490; J7030; J7050; J7060; Q9967